=== PATIENT | female | born 1985 | race African-American/Black ===

== ENCOUNTER 2016-03-09 17:32 | Emergency (ER) | payer OTHER ==
[2016-03-09 19:19] LABS: BASO % 0.2 % (0.0-1.0); EOS # 0.1 K/mm3 (0.0-0.50); EOS % 1.7 % (0.0-3.0); LARGE UNSTAINED CELL # 0.1 K/mm3 (0.0-0.4); LARGE UNSTAINED CELL % 1.4 % (0.0-4.0); LYMPH # 2.2 K/mm3 (1.5-6.5); LYMPH % 33.4 % (24.0-44.0); MEAN CORPUSCULAR HEMOGLOBIN 31.5 pg (27.0-33.0); MEAN CORPUSCULAR VOLUME 92.7 fl (80.0-96.0); MONO # 0.3 K/mm3 (0.0-0.8); NEUTROPHILS # 3.9 K/mm3 (1.8-7.7); NEUTROPHILS % 59.4 % (36.0-66.0); PLATELET COUNT, AUTOMATED 228 k/mm3 (150-450); RED CELL DISTRIBUTION WIDTH 12.2 % (11.5-14.5); WHITE BLOOD COUNT 6.6 K/mm3 (4.0-10.0)
[2016-03-09 19:32] LABS: CONTROL LINE HCG INT CTR LINE PRESENT
[2016-03-09 19:36] LABS: ANION GAP 7 MEQ/L (8-16); BLOOD UREA NITROGEN 10 MG/DL (7-18); CALCIUM LEVEL 8.8 MG/DL (8.5-10.1); CARBON DIOXIDE LEVEL 28 MEQ/L (21-32); CHLORIDE LEVEL 105 MEQ/L (98-107); CREATININE FOR GFR 0.81 MG/DL (0.55-1.02); GLOMERULAR FILTRATION RATE > 60.0 (>60); GLUCOSE, FASTING 94 MG/DL (70-105); POTASSIUM SERUM 3.7 MEQ/L (3.5-5.1); SODIUM LEVEL 140 MEQ/L (136-145)
[2016-03-09] MEDS ORDERED: KETOROLAC 30 MG/ML VIAL (J1885) As Ordered ONE ×2 (19:43)
[2016-03-09] MEDS ORDERED: metroNIDAZOLE (FLAGYL) 250 MG TAB As Ordered ONE (19:43)
--- NOTE | 2016-03-09 20:30 | REPUSA ---
Clinical history: Pain. Findings: Real-time transabdominal and transvaginal ultrasound images of the pelvis were obtained. An retroverted uterus is noted, measuring 6.7 x 3.4 x 4.8 cm. The uterus demonstrates normal echotextur e and echogenicity. The endometrial stripe measures 2 mm and is within normal limits. The right ovary measures 3.8 x 1.7 x 1.9 cm. The left ovary measures 3.8 x 1.9 x 2.3 cm. No adnexal masses are seen. Color Doppler flow is seen within both ovaries. There is a small amount of physiologic free fluid no latricia in the cul-de-sac. Impression: Unremarkable ultrasound examination of the pelvis.
--- NOTE | 2016-03-09 21:12 | EDDOCDS ---
Nurse's Notes [facility] Name: Prema Morrissey Age: 30 yrs Sex: Female : 1985 Arrival Date: 03/09/2016 Time: 17:32 Bed I4 / M4 Private MD: HOPE Hunt Diagnosis: Acute vaginitis-BACTERIAL VAGINOSIS Presentation: 03/09 17:49 Presenting complaint: Patient states: Having severe suprapubic pain and and back pain jo3 bilaterally. Was given Pyridium at [facility] but they stated they did not find UTI. Had burning with urination prior to Pyridium. Acute neurological deficits are not present. Mechanism of Injury: No Mechanism of Injury. Adult Sepsis Screening: The patient does not have new or worsening altered mentation. Patient's respiratory rate is less than 22. Systolic blood pressure is greater than 100. Patient has a qSOFA score of 0- Negative Sepsis Screen. Suicide/Homicide risk assessment- the patient denies having any suicidal and/or homicidal ideations and does not present with any other emotional, behavioral or mental health complaints. Status: The patient is a dependent. Transition of care: patient was not received from another setting of care. 17:49 Acuity: YESENIA Level 3 jo3 17:49 Method Of Arrival: Walkin/Carried/Asstd jo3 Triage Assessment: 17:53 General: Appears in no apparent distress, Behavior is appropriate for age, cooperative. jo3 Pain: Pain currently is 8 out of 10 on a pain scale. HIV screening NA for this visit Offered previously. Neurological: Level of Consciousness is awake, alert, Oriented to person, place, time. Respiratory: Airway is patent Respiratory effort is even, unlabored. CATH LAB: 17:53 LMP 01/31/2016 jo3 17:53 Had serum HCG done 03/01/16 jo3 Historical: - Allergies: no known allergies; - Home Meds: 1. Claritin 10 mg Oral tab 1 tab once daily 2. Sertraline 25 mg twice a day 3. Maalox 200-200-20 mg/5 mL Oral susp as needed - PMHx: Depression; - PSHx: none; - Social history: Smoking status: Patient states was never smoker of tobacco. No barriers to communication noted, The patient speaks fluent Serbian, Speaks appropriately for age. - Family history: Not pertinent. - : The pt / caregiver states he / she is not on anticoagulants. Home medication list is obtained from the patient. - Exposure Risk Screening:: None identified. Screenin:55 Screening information is obtained from the patient. Fall risk: No risks identified. jo3 Assistance ADL's: requires no assistance with activities of daily living. Abuse/DV Screen: The patient / caregiver reports he/she is: not in a situation that causes fear, pain or injury. Nutritional screening: No deficits noted. Advance Directives: There is no living will. home support is adequate. Assessment: 19:55 General: Appears in no apparent distress, comfortable, Behavior is appropriate for age, jo3 cooperative, quiet. Pain: Pain currently is 8 out of 10 on a pain scale. Neurological: Level of Consciousness is awake, alert, obeys commands, Oriented to person, place, time. Respiratory: Airway is patent Respiratory effort is even, unlabored. Derm: Skin is pink, warm & dry. Musculoskeletal: Range of motion intact in all extremities. No deformity noted. 21:09 General: Appears in no apparent distress, Behavior is cooperative. Pain: Location: low ld5 back area Pain currently is 6 out of 10 on a pain scale. Respiratory: Airway is patent Respiratory effort is even, unlabored. GI: Denies nausea. Vital Signs: 17:34 BP 142 / 85; Pulse 73; Resp 18; Temp 99.3(O); Pulse Ox 100% on R/A; Weight 68.04 kg elp (R); Height 5 ft. 3 in. (160.02 cm) (R); Pain 8/10; 21:09 BP 130 / 71; Pulse 61; Resp 16; Temp 99; Pulse Ox 98% on R/A; Pain 6/10; ld5 17:34 Body Mass Index 26.57 (68.04 kg, 160.02 cm) cox [place] Vitals: 17:34 Log In Time: March 09, 2016 at 17:30. elp ED Course: 17:33 Patient visited by Mana Weston PCA. elp 17:33 Patient moved to Waiting elp 17:34 HOPE Hunt is Private Physician. elp 17:35 Patient visited by Mana Weston PCA. elp 17:35 Patient moved to Pre RCE elp 17:51 Triage Initiated jo3 17:55 Patient visited by Lanie Yoder,MIMI. jo3 18:11 Patient moved to Triage 2 kcs 18:26 Shon Thorpe PA is PHCP. mo1 18:26 Alec Lopez MD is Attending Physician. mo1 18:35 Patient visited by Maria Eugenia Augustin,MIMI. ck1 18:45 Patient visited by Shon Thorpe PA. mo1 18:45 Patient moved to I4 / M4 kcs 19:04 Basic Metabolic Profile Sent. ajs 19:05 CBC with Diff Sent. ajs 19:05 HCG,Serum Qualitative Sent. ajs 19:05 Urinalysis Sent. ajs 19:05 Urine Culture Sent. ajs 19:10 Assist provider with pelvic exam: Specimens sent to lab. ajs 19:39 Patient visited by Esther Parker RN. ms18 19:55 Patient visited by Lanie Yoder RN. jo3 19:55 The patient / caregiver is instructed regarding the plan of care and ED course. Patient michelle has correct armband on for positive identification. Placed in gown. Bed in low position. Property sent home with patient. :Personal belongings accompany Pt. 19:55 No IV's were initiated during this patient's visit. jo3 19:57 Patient visited by Rita Narvaez. ajs 19:57 [facility] Payment Agreement was scanned into [employer] and attached to record. zo 20:01 Patient name changed from Prema\S\\S\Ghanshyam\S\ to Prema\S\ \S\Ghanshyam. EDMS 20:49 Patient visited by Esther Parker RN. ms18 21:10 - Pelvic Non-Ob Complete Returned. EDMS 21:11 Patient visited by Kaylan Escobar RN. ld5 Administered Medications: 20:00 Drug: ketorolac 60 mg [ketorolac 30 mg/mL (1 mL) injection solution (2 mL)] Route: IM; ms18 Site: right deltoid; 21:10 Follow up: Response: Pain is decreased ld5 20:00 Drug: metroNIDAZOLE 500 mg [metronidazole 250 mg tablet (2 tabs)] Route: PO; ms18 Order Results: Lab Order: Basic Metabolic Profile; SPEC'M 03/09/16 19:03 Test: GLUCOSE, FASTING; Value: 94; Range: 70-105; Units: MG/DL; Status: F Test: BLOOD UREA NITROGEN; Value: 10; Range: 7-18; Units: MG/DL; Status: F Test: CREATININE FOR GFR; Value: 0.81; Range: 0.55-1.02; Units: MG/DL; Status: F Test: SODIUM LEVEL; Range: 136-145; Units: MEQ/L; Status: I Test: POTASSIUM SERUM; Range: 3.5-5.1; Units: MEQ/L; Status: I Test: CHLORIDE LEVEL; Range: 98-107; Units: MEQ/L; Status: I Test: CARBON DIOXIDE LEVEL; Range: 21-32; Units: MEQ/L; Status: I Test: ANION GAP; Range: 8-16; Units: MEQ/L; Status: I Test: CALCIUM LEVEL; Range: 8.5-10.1; Units: MG/DL; Status: I Test: GLOMERULAR FILTRATION RATE; Value: > 60.0; Range: >60; Status: F Test: SODIUM LEVEL; Value: 140; Range: 136-145; Units: MEQ/L; Status: F Test: POTASSIUM SERUM; Value: 3.7; Range: 3.5-5.1; Units: MEQ/L; Status: F Test: CHLORIDE LEVEL; Value: 105; Range: 98-107; Units: MEQ/L; Status: F Test: CARBON DIOXIDE LEVEL; Value: 28; Range: 21-32; Units: MEQ/L; Status: F Test: ANION GAP; Value: 7; Range: 8-16; Abnormal: Below low normal; Units: MEQ/L; Status: F Test: CALCIUM LEVEL; Value: 8.8; Range: 8.5-10.1; Units: MG/DL; Status: F Test Note: ; Units are mL/min/1.73 m2 Chronic Kidney Disease Staging per NKF: Stage I & II GFR >=60 Normal to Mildly Decreased Stage III GFR 30-59 Moderately Decreased Stage IV GFR 15-29 Severely Decreased Stage V GFR <15 Very Little GFR Left ESRD GFR <15 on [employer] Lab Order: CBC with Diff; SPEC'M 03/09/16 19:03 Test: WHITE BLOOD COUNT; Value: 6.6; Range: 4.0-10.0; Units: K/mm3; Status: F Test: RED BLOOD COUNT; Value: 4.22; Range: 4.00-5.40; Units: M/mm3; Status: F Test: HEMOGLOBIN; Value: 13.3; Range: 12.0-16.0; Units: g/dl; Status: F Test: HEMATOCRIT; Value: 39.1; Range: 36.0-47.0; Units: %; Status: F Test: MEAN CORPUSCULAR VOLUME; Value: 92.7; Range: 80.0-96.0; Units: fl; Status: F Test: MEAN CORPUSCULAR HEMOGLOBIN; Value: 31.5; Range: 27.0-33.0; Units: pg; Status: F Test: MEAN CORPUSCULAR HGB CONC; Value: 34.0; Range: 32.0-36.5; Units: g/dl; Status: F Test: RED CELL DISTRIBUTION WIDTH; Value: 12.2; Range: 11.5-14.5; Units: %; Status: F Test: PLATELET COUNT, AUTOMATED; Value: 228; Range: 150-450; Units: k/mm3; Status: F Test: NEUTROPHILS %; Value: 59.4; Range: 36.0-66.0; Units: %; Status: F Test: LYMPH %; Value: 33.4; Range: 24.0-44.0; Units: %; Status: F Test: MONO %; Value: 4.0; Range: 0.0-5.0; Units: %; Status: F Test: EOS %; Value: 1.7; Range: 0.0-3.0; Units: %; Status: F Test: BASO %; Value: 0.2; Range: 0.0-1.0; Units: %; Status: F Test: LARGE UNSTAINED CELL %; Value: 1.4; Range: 0.0-4.0; Units: %; Status: F Test: NEUTROPHILS #; Value: 3.9; Range: 1.8-7.7; Units: K/mm3; Status: F Test: LYMPH #; Value: 2.2; Range: 1.5-6.5; Units: K/mm3; Status: F Test: MONO #; Value: 0.3; Range: 0.0-0.8; Units: K/mm3; Status: F Test: EOS #; Value: 0.1; Range: 0.0-0.50; Units: K/mm3; Status: F Test: BASO #; Value: 0.0; Range: 0.0-0.2; Units: K/mm3; Status: F Test: LARGE UNSTAINED CELL #; Value: 0.1; Range: 0.0-0.4; Units: K/mm3; Status: F Lab Order: HCG,Serum Qualitative; SPEC'M 03/09/16 19:03 Test: HCG, SERUM QUALITATIVE; Value: NEGATIVE; Range: NEGATIVE; Status: F Lab Order: Urinalysis; SPEC'M 03/09/16 19:03 Test: APPEARANCE, URINE; Value: CLEAR; Range: CLEAR; Status: F Test: COLOR, URINE; Value: YELLOW; Range: YELLOW; Status: F Test: PH,URINE; Value: 7.0; Range: 5.0-9.0; Units: UNITS; Status: F Test: SPECIFIC GRAVITY URINE AUTO; Value: 1.018; Range: 1.002-1.035; Status: F Test: PROTEIN, URINE AUTO; Value: NEGATIVE; Range: NEGATIVE; Units: mg/dL; Status: F Test: GLUCOSE, URINE (UA) AUTO; Value: NEGATIVE; Range: NEGATIVE; Units: mg/dL; Status: F Test: KETONE, URINE AUTO; Value: NEGATIVE; Range: NEGATIVE; Units: mg/dL; Status: F Test: UROBILINOGEN, URINE AUTO; Value: 4.0; Range: 0.0-2.0; Abnormal: Above high normal; Units: mg/dL; Status: F Test: BILIRUBIN, URINE AUTO; Value: NEGATIVE; Range: NEGATIVE; Status: F Test: NITRITE, URINE AUTO; Value: NEGATIVE; Range: NEGATIVE; Status: F Test: LEUKOCYTE ESTERASE, URINE AUTO; Value: NEGATIVE; Range: NEGATIVE; Status: F Test: BLOOD, URINE BLOOD; Value: NEGATIVE; Range: NEGATIVE; Status: F Test: WBC, URINE AUTO; Value: 2; Range: 0-3; Units: /HPF; Status: F Test: RBC, URINE AUTO; Value: 0; Range: 0-3; Units: /HPF; Status: F Test: BACTERIA, URINE AUTO; Value: NEGATIVE; Range: NEGATIVE; Status: F Test: SQUAMOUS EPITHELIAL CELL UR AU; Value: 3; Range: 0-6; Units: /HPF; Status: F Test: MUCUS, URINE; Value: SMALL; Range: NEGATIVE; Status: F Test: HYALINE CAST, URINE AUTO; Value: 0; Range: 0-1; Units: /LPF; Status: F Lab Order: Wet Prep; SPEC'M 03/09/16 19:04 Test: WET PREP; Value: WET PREP RESULT; Status: F Test: WET PREP; Value: MANY EPITHELIAL CELLS PRESENT; Status: F Test: WET PREP; Value: MODERATE WBC; Status: F Test: WET PREP; Value: MODERATE CLUE CELLS PRESENT; Status: F Test: WET PREP; Value: MANY SHORT RODS PRESENT; Status: F Test: WET PREP; Value: MANY LONG RODS PRESENT; Status: F Radiology Order: -US Pelvic Non-Ob Complete Test: -US Pelvic Non-Ob Complete REASON FOR EXAMINATION: Adnexal Pain r/o Torsion; ; Clinical history: Pain.; Findings: Real-time transabdominal and transvaginal ultrasound images of the pelvis were obtained. An; retroverted uterus is noted, measuring 6.7 x 3.4 x 4.8 cm. The uterus demonstrates normal echotextur; e and echogenicity. The endometrial stripe measures 2 mm and is within normal limits. The right ovary; measures 3.8 x 1.7 x 1.9 cm. The left ovary measures 3.8 x 1.9 x 2.3 cm. No adnexal masses are seen.; Color Doppler flow is seen within both ovaries. There is a small amount of physiologic free fluid no; latricia in the cul-de-sac.; Impression: Unremarkable ultrasound examination of the pelvis.; ; Outcome: 20:58 Discharge ordered by Provider. mo1 21:09 Discharge Assessment: Patient awake, alert and oriented x 3. No cognitive and/or ld5 functional deficits noted. Patient verbalized understanding of disposition instructions. patient administered narcotics - no. The following High Risk Discharge criteria are identified: None. Discharged to home ambulatory. Condition: stable. Discharge instructions given to patient, Instructed on discharge instructions, follow up and referral plans. medication usage, Demonstrated understanding of instructions, medications, Pt was receptive of discharge instructions/ teaching. Prescriptions given X 1. No special radiology studies were completed. 21:11 Patient left the ED. ld5 Signatures: Dispatcher [employer] EDConstance Vazquez, RN RN Maria Eugenia TomRN RN ck1 Lanie Yoder RN RN jo3 Destinee Caceres Laura, RN RN ld5 Rita Narvaez Michael, PA PA mo1 Mana Weston, MOLD STAMPER MOLD STAMPER elp Esther Parker RN RN ms18 Corrections: (The following items were deleted from the chart) 17:35 17:34 BP 142 / 85; Pulse 73bpm; Resp 18bpm; Pulse Ox 100%; Temp 99.3F; 68.04 kg; Height elp 5 ft. 5 in.; BMI: 24.9; elp 19:57 19:56 Assist provider with pelvic exam: krystina flaherty MTDD
--- NOTE | 2016-03-09 21:12 | EDDOCDS ---
Physician Documentation [facility] Name: Prema Morrissey Age: 30 yrs Sex: Female : 1985 Arrival Date: 03/09/2016 Time: 17:32 Bed I4 / M4 Private MD: Marilee [facility] Disposition: 03/09/16 20:58 Discharged to Home/Self Care. Impression: Acute vaginitis - BACTERIAL VAGINOSIS . - Condition is Stable. - Discharge Instructions: Bacterial Vaginosis, Pelvic Pain, Female. - Prescriptions for Flagyl 500 mg Oral Tablet - take 1 tablet by ORAL route every 12 hours for 7 days; 14 tablet. - Medication Reconciliation, Local Pharmacy Hours form. - Follow up: Private Physician; When: Call to arrange an appointment; Reason: Recheck today's complaints, Continuance of care. - Problem is new. - Symptoms are unchanged. Historical: - Allergies: no known allergies; - Home Meds: 1. Claritin 10 mg Oral tab 1 tab once daily 2. Sertraline 25 mg twice a day 3. Maalox 200-200-20 mg/5 mL Oral susp as needed - PMHx: Depression; - PSHx: none; - Social history: Smoking status: Patient states was never smoker of tobacco. No barriers to communication noted, The patient speaks fluent Moldovan, Speaks appropriately for age. - Family history: Not pertinent. - : The pt / caregiver states he / she is not on anticoagulants. Home medication list is obtained from the patient. - Exposure Risk Screening:: None identified. 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 3 in. (160.02 cm) (R); Pain 8/10; 21:09 BP 130 / 71; Pulse 61; Resp 16; Temp 99; Pulse Ox 98% on R/A; Pain 6/10; ld5 17:34 Body Mass Index 26.57 (68.04 kg, 160.02 cm) elp MDM: 18:46 Undress patient appropriately for examination ordered. mo1 18:46 Set up pelvic ordered. mo1 18:46 ketorolac 60 mg IM once ordered. mo1 18:47 Basic Metabolic Profile Ordered. EDMS 18:47 CBC with Diff Ordered. EDMS 18:47 HCG,Serum Qualitative Ordered. EDMS 18:47 Urinalysis Ordered. EDMS 18:47 GC & Chlamydia Amplification Ordered. EDMS 18:48 Urine Culture Ordered. EDMS 18:48 Wet Prep Ordered. EDMS 18:49 NOTHING BY MOUTH+DIET ordered. EDMS 19:10 -US Pelvic Non-Ob Complete Ordered. EDMS 19:10 DUPLEX SCAN LIMITED (DOPPLER)+US Ordered. EDMS 19:23 CBC with Diff Reviewed. mo1 19:42 HCG,Serum Qualitative Reviewed. mo1 19:42 Wet Prep Reviewed. mo1 19:42 Urinalysis Reviewed. mo1 19:42 Basic Metabolic Profile Reviewed. mo1 19:43 metroNIDAZOLE 500 mg PO once ordered. mo1 19:56 Financial registration complete. zo 19:57 [facility] Payment Agreement was scanned into [employer] and attached to record. zo Administered Medications: 20:00 Drug: ketorolac 60 mg [ketorolac 30 mg/mL (1 mL) injection solution (2 mL)] Route: IM; ms18 Site: right deltoid; 21:10 Follow up: Response: Pain is decreased ld5 20:00 Drug: metroNIDAZOLE 500 mg [metronidazole 250 mg tablet (2 tabs)] Route: PO; ms18 Signatures: Dispatcher [employer] Lanie Jones RN RN jo3 Destinee Caceres Laura, RN RN ld5 Shon Thorpe PA PA mo1 Esther Parker RN ms18 The chart was reviewed and I authenticate all verbal orders and agree with the evaluation and treatment provided.Attachments: 19:57 [facility] Payment Agreement zo MTDD
--- NOTE | 2016-03-11 22:12 | EDDOCDS ---
Physician Documentation [facility] Name: Prema Morrissey Age: 30 yrs Sex: Female : 1985 Arrival Date: 03/09/2016 Time: 17:32 Bed I4 / M4 Private MD: Marilee [facility] [place] Disposition: 03/09/16 20:58 Discharged to Home/Self Care. Impression: Acute vaginitis - BACTERIAL VAGINOSIS . - Condition is Stable. - Discharge Instructions: Bacterial Vaginosis, Pelvic Pain, Female. - Prescriptions for Flagyl 500 mg Oral Tablet - take 1 tablet by ORAL route every 12 hours for 7 days; 14 tablet. - Medication Reconciliation, Local Pharmacy Hours form. - Follow up: Private Physician; When: Call to arrange an appointment; Reason: Recheck today's complaints, Continuance of care. - Problem is new. - Symptoms are unchanged. Historical: - Allergies: no known allergies; - Home Meds: 1. Claritin 10 mg Oral tab 1 tab once daily 2. Sertraline 25 mg twice a day 3. Maalox 200-200-20 mg/5 mL Oral susp as needed - PMHx: Depression; - PSHx: none; - Social history: Smoking status: Patient states was never smoker of tobacco. No barriers to communication noted, The patient speaks fluent Egyptian, Speaks appropriately for age. - Family history: Not pertinent. - : The pt / caregiver states he / she is not on anticoagulants. Home medication list is obtained from the patient. - Exposure Risk Screening:: None identified. 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 3 in. (160.02 cm) (R); Pain 8/10; 21:09 BP 130 / 71; Pulse 61; Resp 16; Temp 99; Pulse Ox 98% on R/A; Pain 6/10; ld5 17:34 Body Mass Index 26.57 (68.04 kg, 160.02 cm) elp MDM: 18:46 Undress patient appropriately for examination ordered. mo1 18:46 Set up pelvic ordered. mo1 18:46 ketorolac 60 mg IM once ordered. mo1 18:47 Basic Metabolic Profile Ordered. EDMS 18:47 CBC with Diff Ordered. EDMS 18:47 HCG,Serum Qualitative Ordered. EDMS 18:47 Urinalysis Ordered. EDMS 18:47 GC & Chlamydia Amplification Ordered. EDMS 18:48 Urine Culture Ordered. EDMS 18:48 Wet Prep Ordered. EDMS 18:49 NOTHING BY MOUTH+DIET ordered. EDMS 19:10 -US Pelvic Non-Ob Complete Ordered. EDMS 19:10 DUPLEX SCAN LIMITED (DOPPLER)+US Ordered. EDMS 19:23 CBC with Diff Reviewed. mo1 19:42 HCG,Serum Qualitative Reviewed. mo1 19:42 Wet Prep Reviewed. mo1 19:42 Urinalysis Reviewed. mo1 19:42 Basic Metabolic Profile Reviewed. mo1 19:43 metroNIDAZOLE 500 mg PO once ordered. mo1 19:56 Financial registration complete. zo :57 [facility] Payment Agreement was scanned into [facility] and attached to record. zo 03/10 10:58 T-Sheet-- Draft Copy was scanned into [facility] and attached to record. gb Administered Medications: 03/09 20:00 Drug: ketorolac 60 mg [ketorolac 30 mg/mL (1 mL) injection solution (2 mL)] Route: IM; ms18 Site: right deltoid; 21:10 Follow up: Response: Pain is decreased ld5 20:00 Drug: metroNIDAZOLE 500 mg [metronidazole 250 mg tablet (2 tabs)] Route: PO; ms18 Signatures: Dispatcher [employer] EDSD Prema Moe, Reg Reg Lanie CastroRN RN [email or web address] Destinee Caceres Laura, RN RN ld5 Shon Thorpe PA PA mo1 Esther Parker RN ms18 The chart was reviewed and I authenticate all verbal orders and agree with the evaluation and treatment provided.Attachments: :57 [facility] Payment Agreement zo 03/10 10:58 T-Sheet-- Draft Copy gb Chart Complete MTDD
--- NOTE | 2016-03-11 22:12 | EDDOCDS ---
Physician Documentation [facility] Name: Prema Morrissey Age: 30 yrs Sex: Female : 1985 Arrival Date: 03/09/2016 Time: 17:32 Bed I4 / M4 Private MD: Marilee [facility] [place] Disposition: 03/09/16 20:58 Discharged to Home/Self Care. Impression: Acute vaginitis - BACTERIAL VAGINOSIS . - Condition is Stable. - Discharge Instructions: Bacterial Vaginosis, Pelvic Pain, Female. - Prescriptions for Flagyl 500 mg Oral Tablet - take 1 tablet by ORAL route every 12 hours for 7 days; 14 tablet. - Medication Reconciliation, Local Pharmacy Hours form. - Follow up: Private Physician; When: Call to arrange an appointment; Reason: Recheck today's complaints, Continuance of care. - Problem is new. - Symptoms are unchanged. Historical: - Allergies: no known allergies; - Home Meds: 1. Claritin 10 mg Oral tab 1 tab once daily 2. Sertraline 25 mg twice a day 3. Maalox 200-200-20 mg/5 mL Oral susp as needed - PMHx: Depression; - PSHx: none; - Social history: Smoking status: Patient states was never smoker of tobacco. No barriers to communication noted, The patient speaks fluent Scottish, Speaks appropriately for age. - Family history: Not pertinent. - : The pt / caregiver states he / she is not on anticoagulants. Home medication list is obtained from the patient. - Exposure Risk Screening:: None identified. 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 3 in. (160.02 cm) (R); Pain 8/10; 21:09 BP 130 / 71; Pulse 61; Resp 16; Temp 99; Pulse Ox 98% on R/A; Pain 6/10; ld5 17:34 Body Mass Index 26.57 (68.04 kg, 160.02 cm) elp MDM: 18:46 Undress patient appropriately for examination ordered. mo1 18:46 Set up pelvic ordered. mo1 18:46 ketorolac 60 mg IM once ordered. mo1 18:47 Basic Metabolic Profile Ordered. EDMS 18:47 CBC with Diff Ordered. EDMS 18:47 HCG,Serum Qualitative Ordered. EDMS 18:47 Urinalysis Ordered. EDMS 18:47 GC & Chlamydia Amplification Ordered. EDMS 18:48 Urine Culture Ordered. EDMS 18:48 Wet Prep Ordered. EDMS 18:49 NOTHING BY MOUTH+DIET ordered. EDMS 19:10 -US Pelvic Non-Ob Complete Ordered. EDMS 19:10 DUPLEX SCAN LIMITED (DOPPLER)+US Ordered. EDMS 19:23 CBC with Diff Reviewed. mo1 19:42 HCG,Serum Qualitative Reviewed. mo1 19:42 Wet Prep Reviewed. mo1 19:42 Urinalysis Reviewed. mo1 19:42 Basic Metabolic Profile Reviewed. mo1 19:43 metroNIDAZOLE 500 mg PO once ordered. mo1 19:56 Financial registration complete. zo :57 [facility] Payment Agreement was scanned into [employer] and attached to record. zo 03/10 10:58 T-Sheet-- Draft Copy was scanned into [employer] and attached to record. gb Administered Medications: 03/09 20:00 Drug: ketorolac 60 mg [ketorolac 30 mg/mL (1 mL) injection solution (2 mL)] Route: IM; ms18 Site: right deltoid; 21:10 Follow up: Response: Pain is decreased ld5 20:00 Drug: metroNIDAZOLE 500 mg [metronidazole 250 mg tablet (2 tabs)] Route: PO; ms18 Signatures: Dispatcher [employer] EDIL Prema Moe, Reg Reg Lanie CastroRN RN [id number] Destinee Caceres Laura, RN RN ld5 Shon Thorpe PA PA mo1 Esther Parker RN ms18 The chart was reviewed and I authenticate all verbal orders and agree with the evaluation and treatment provided.Attachments: :57 [facility] Payment Agreement zo 03/10 10:58 T-Sheet-- Draft Copy gb Chart Complete MTDD
--- NOTE | 2016-03-11 22:12 | EDDOCDS ---
Nurse's Notes [facility] Name: Prema Morrissey Age: 30 yrs Sex: Female : 1985 Arrival Date: 03/09/2016 Time: 17:32 Bed I4 / M4 Private MD: HOPE Hunt Diagnosis: Acute vaginitis-BACTERIAL VAGINOSIS Presentation: 03/09 17:49 Presenting complaint: Patient states: Having severe suprapubic pain and and back pain jo3 bilaterally. Was given Pyridium at [place] but they stated they did not find UTI. Had burning with urination prior to Pyridium. Acute neurological deficits are not present. Mechanism of Injury: No Mechanism of Injury. Adult Sepsis Screening: The patient does not have new or worsening altered mentation. Patient's respiratory rate is less than 22. Systolic blood pressure is greater than 100. Patient has a qSOFA score of 0- Negative Sepsis Screen. Suicide/Homicide risk assessment- the patient denies having any suicidal and/or homicidal ideations and does not present with any other emotional, behavioral or mental health complaints. Status: The patient is a dependent. Transition of care: patient was not received from another setting of care. 17:49 Acuity: YESENIA Level 3 jo3 17:49 Method Of Arrival: Walkin/Carried/Asstd jo3 Triage Assessment: 17:53 General: Appears in no apparent distress, Behavior is appropriate for age, cooperative. jo3 Pain: Pain currently is 8 out of 10 on a pain scale. HIV screening NA for this visit Offered previously. Neurological: Level of Consciousness is awake, alert, Oriented to person, place, time. Respiratory: Airway is patent Respiratory effort is even, unlabored. QUARTZ MINER BLASTING: 17:53 LMP 01/31/2016 jo3 17:53 Had serum HCG done 03/01/16 jo3 Historical: - Allergies: no known allergies; - Home Meds: 1. Claritin 10 mg Oral tab 1 tab once daily 2. Sertraline 25 mg twice a day 3. Maalox 200-200-20 mg/5 mL Oral susp as needed - PMHx: Depression; - PSHx: none; - Social history: Smoking status: Patient states was never smoker of tobacco. No barriers to communication noted, The patient speaks fluent Divehi, Speaks appropriately for age. - Family history: Not pertinent. - : The pt / caregiver states he / she is not on anticoagulants. Home medication list is obtained from the patient. - Exposure Risk Screening:: None identified. Screenin:55 Screening information is obtained from the patient. Fall risk: No risks identified. jo3 Assistance ADL's: requires no assistance with activities of daily living. Abuse/DV Screen: The patient / caregiver reports he/she is: not in a situation that causes fear, pain or injury. Nutritional screening: No deficits noted. Advance Directives: There is no living will. home support is adequate. Assessment: 19:55 General: Appears in no apparent distress, comfortable, Behavior is appropriate for age, jo3 cooperative, quiet. Pain: Pain currently is 8 out of 10 on a pain scale. Neurological: Level of Consciousness is awake, alert, obeys commands, Oriented to person, place, time. Respiratory: Airway is patent Respiratory effort is even, unlabored. Derm: Skin is pink, warm & dry. Musculoskeletal: Range of motion intact in all extremities. No deformity noted. 21:09 General: Appears in no apparent distress, Behavior is cooperative. Pain: Location: low ld5 back area Pain currently is 6 out of 10 on a pain scale. Respiratory: Airway is patent Respiratory effort is even, unlabored. GI: Denies nausea. Vital Signs: 17:34 BP 142 / 85; Pulse 73; Resp 18; Temp 99.3(O); Pulse Ox 100% on R/A; Weight 68.04 kg elp (R); Height 5 ft. 3 in. (160.02 cm) (R); Pain 8/10; 21:09 BP 130 / 71; Pulse 61; Resp 16; Temp 99; Pulse Ox 98% on R/A; Pain 6/10; ld5 17:34 Body Mass Index 26.57 (68.04 kg, 160.02 cm) [facility] Vitals: 17:34 Log In Time: March 09, 2016 at 17:30. elp ED Course: 17:33 Patient visited by Mana Weston PCA. elp 17:33 Patient moved to Waiting elp 17:34 HOPE Hunt is Private Physician. elp 17:35 Patient visited by Mana Weston PCA. elp 17:35 Patient moved to Pre RCE elp 17:51 Triage Initiated jo3 17:55 Patient visited by Lanie Yoder RN. jo3 18:11 Patient moved to Triage 2 kcs 18:26 Shon Thorpe PA is PHCP. mo1 18:26 Alec Lopez MD is Attending Physician. mo1 18:35 Patient visited by Maria Eugenia Augustin,MIMI. ck1 18:45 Patient visited by Shon Thorpe PA. mo1 18:45 Patient moved to I4 / M4 kcs 19:04 Basic Metabolic Profile Sent. ajs 19:05 CBC with Diff Sent. ajs 19:05 HCG,Serum Qualitative Sent. ajs 19:05 Urinalysis Sent. ajs 19:05 Urine Culture Sent. ajs 19:10 Assist provider with pelvic exam: Specimens sent to lab. ajs 19:39 Patient visited by Esther Parker RN. ms18 19:55 Patient visited by Lanie Yoder RN. jo3 19:55 The patient / caregiver is instructed regarding the plan of care and ED course. Patient michelle has correct armband on for positive identification. Placed in gown. Bed in low position. Property sent home with patient. :Personal belongings accompany Pt. 19:55 No IV's were initiated during this patient's visit. jo3 19:57 Patient visited by Rita Narvaez. ajs 19:57 [facility] Payment Agreement was scanned into [employer] and attached to record. zo 20:01 Patient name changed from Prema\S\\S\Ghanshyam\S\ to Prema\S\ \S\Ghanshyam. EDMS 20:49 Patient visited by Esther Parker RN. ms18 21:10 -US Pelvic Non-Ob Complete Returned. EDMS 21:11 Patient visited by Kaylan Escobar RN. ld5 0203 10:58 T-Sheet-- Draft Copy was scanned into [employer] and attached to record. gb Administered Medications: 03/09 20:00 Drug: ketorolac 60 mg [ketorolac 30 mg/mL (1 mL) injection solution (2 mL)] Route: IM; ms18 Site: right deltoid; 21:10 Follow up: Response: Pain is decreased ld5 20:00 Drug: metroNIDAZOLE 500 mg [metronidazole 250 mg tablet (2 tabs)] Route: PO; ms18 Order Results: Lab Order: Basic Metabolic Profile; SPEC'M 03/09/16 19:03 Test: GLUCOSE, FASTING; Value: 94; Range: 70-105; Units: MG/DL; Status: F Test: BLOOD UREA NITROGEN; Value: 10; Range: 7-18; Units: MG/DL; Status: F Test: CREATININE FOR GFR; Value: 0.81; Range: 0.55-1.02; Units: MG/DL; Status: F Test: SODIUM LEVEL; Range: 136-145; Units: MEQ/L; Status: I Test: POTASSIUM SERUM; Range: 3.5-5.1; Units: MEQ/L; Status: I Test: CHLORIDE LEVEL; Range: 98-107; Units: MEQ/L; Status: I Test: CARBON DIOXIDE LEVEL; Range: 21-32; Units: MEQ/L; Status: I Test: ANION GAP; Range: 8-16; Units: MEQ/L; Status: I Test: CALCIUM LEVEL; Range: 8.5-10.1; Units: MG/DL; Status: I Test: GLOMERULAR FILTRATION RATE; Value: > 60.0; Range: >60; Status: F Test: SODIUM LEVEL; Value: 140; Range: 136-145; Units: MEQ/L; Status: F Test: POTASSIUM SERUM; Value: 3.7; Range: 3.5-5.1; Units: MEQ/L; Status: F Test: CHLORIDE LEVEL; Value: 105; Range: 98-107; Units: MEQ/L; Status: F Test: CARBON DIOXIDE LEVEL; Value: 28; Range: 21-32; Units: MEQ/L; Status: F Test: ANION GAP; Value: 7; Range: 8-16; Abnormal: Below low normal; Units: MEQ/L; Status: F Test: CALCIUM LEVEL; Value: 8.8; Range: 8.5-10.1; Units: MG/DL; Status: F Test Note: ; Units are mL/min/1.73 m2 Chronic Kidney Disease Staging per NKF: Stage I & II GFR >=60 Normal to Mildly Decreased Stage III GFR 30-59 Moderately Decreased Stage IV GFR 15-29 Severely Decreased Stage V GFR <15 Very Little GFR Left ESRD GFR <15 on FISHER LAMPARA NET Lab Order: CBC with Diff; SPEC'M 03/09/16 19:03 Test: WHITE BLOOD COUNT; Value: 6.6; Range: 4.0-10.0; Units: K/mm3; Status: F Test: RED BLOOD COUNT; Value: 4.22; Range: 4.00-5.40; Units: M/mm3; Status: F Test: HEMOGLOBIN; Value: 13.3; Range: 12.0-16.0; Units: g/dl; Status: F Test: HEMATOCRIT; Value: 39.1; Range: 36.0-47.0; Units: %; Status: F Test: MEAN CORPUSCULAR VOLUME; Value: 92.7; Range: 80.0-96.0; Units: fl; Status: F Test: MEAN CORPUSCULAR HEMOGLOBIN; Value: 31.5; Range: 27.0-33.0; Units: pg; Status: F Test: MEAN CORPUSCULAR HGB CONC; Value: 34.0; Range: 32.0-36.5; Units: g/dl; Status: F Test: RED CELL DISTRIBUTION WIDTH; Value: 12.2; Range: 11.5-14.5; Units: %; Status: F Test: PLATELET COUNT, AUTOMATED; Value: 228; Range: 150-450; Units: k/mm3; Status: F Test: NEUTROPHILS %; Value: 59.4; Range: 36.0-66.0; Units: %; Status: F Test: LYMPH %; Value: 33.4; Range: 24.0-44.0; Units: %; Status: F Test: MONO %; Value: 4.0; Range: 0.0-5.0; Units: %; Status: F Test: EOS %; Value: 1.7; Range: 0.0-3.0; Units: %; Status: F Test: BASO %; Value: 0.2; Range: 0.0-1.0; Units: %; Status: F Test: LARGE UNSTAINED CELL %; Value: 1.4; Range: 0.0-4.0; Units: %; Status: F Test: NEUTROPHILS #; Value: 3.9; Range: 1.8-7.7; Units: K/mm3; Status: F Test: LYMPH #; Value: 2.2; Range: 1.5-6.5; Units: K/mm3; Status: F Test: MONO #; Value: 0.3; Range: 0.0-0.8; Units: K/mm3; Status: F Test: EOS #; Value: 0.1; Range: 0.0-0.50; Units: K/mm3; Status: F Test: BASO #; Value: 0.0; Range: 0.0-0.2; Units: K/mm3; Status: F Test: LARGE UNSTAINED CELL #; Value: 0.1; Range: 0.0-0.4; Units: K/mm3; Status: F Lab Order: HCG,Serum Qualitative; SPEC'M 03/09/16 19:03 Test: HCG, SERUM QUALITATIVE; Value: NEGATIVE; Range: NEGATIVE; Status: F Lab Order: Urinalysis; SPEC'M 03/09/16 19:03 Test: APPEARANCE, URINE; Value: CLEAR; Range: CLEAR; Status: F Test: COLOR, URINE; Value: YELLOW; Range: YELLOW; Status: F Test: PH,URINE; Value: 7.0; Range: 5.0-9.0; Units: UNITS; Status: F Test: SPECIFIC GRAVITY URINE AUTO; Value: 1.018; Range: 1.002-1.035; Status: F Test: PROTEIN, URINE AUTO; Value: NEGATIVE; Range: NEGATIVE; Units: mg/dL; Status: F Test: GLUCOSE, URINE (UA) AUTO; Value: NEGATIVE; Range: NEGATIVE; Units: mg/dL; Status: F Test: KETONE, URINE AUTO; Value: NEGATIVE; Range: NEGATIVE; Units: mg/dL; Status: F Test: UROBILINOGEN, URINE AUTO; Value: 4.0; Range: 0.0-2.0; Abnormal: Above high normal; Units: mg/dL; Status: F Test: BILIRUBIN, URINE AUTO; Value: NEGATIVE; Range: NEGATIVE; Status: F Test: NITRITE, URINE AUTO; Value: NEGATIVE; Range: NEGATIVE; Status: F Test: LEUKOCYTE ESTERASE, URINE AUTO; Value: NEGATIVE; Range: NEGATIVE; Status: F Test: BLOOD, URINE BLOOD; Value: NEGATIVE; Range: NEGATIVE; Status: F Test: WBC, URINE AUTO; Value: 2; Range: 0-3; Units: /HPF; Status: F Test: RBC, URINE AUTO; Value: 0; Range: 0-3; Units: /HPF; Status: F Test: BACTERIA, URINE AUTO; Value: NEGATIVE; Range: NEGATIVE; Status: F Test: SQUAMOUS EPITHELIAL CELL UR AU; Value: 3; Range: 0-6; Units: /HPF; Status: F Test: MUCUS, URINE; Value: SMALL; Range: NEGATIVE; Status: F Test: HYALINE CAST, URINE AUTO; Value: 0; Range: 0-1; Units: /LPF; Status: F Lab Order: Urine Culture; SPEC'M 03/09/16 19:03 Test: URINE CULTURE; Value: <EXTERNAL COMMENT eCWMed> FULL REPORT IN LAB NOTES (eCW and Medent).; Status: F Test: URINE CULTURE; Value: URINE CULTURE RESULT NO GROWTH CLINICAL SIGNIFICANCE 1 ORGANISM; Status: F Lab Order: GC & Chlamydia Amplification; SPEC'M 03/09/16 19:04 Test: CHLAMYDIA DNA AMPLIFICATION; Value: NEGATIVE; Range: NEGATIVE; Status: F Test: GC DNA AMPLIFICATION; Value: NEGATIVE; Range: NEGATIVE; Status: F Lab Order: Wet Prep; SPEC'M 03/09/16 19:04 Test: WET PREP; Value: WET PREP RESULT; Status: F Test: WET PREP; Value: MANY EPITHELIAL CELLS PRESENT; Status: F Test: WET PREP; Value: MODERATE WBC; Status: F Test: WET PREP; Value: MODERATE CLUE CELLS PRESENT; Status: F Test: WET PREP; Value: MANY SHORT RODS PRESENT; Status: F Test: WET PREP; Value: MANY LONG RODS PRESENT; Status: F Radiology Order: -US Pelvic Non-Ob Complete Test: -US Pelvic Non-Ob Complete REASON FOR EXAMINATION: Adnexal Pain r/o Torsion; ; Clinical history: Pain.; Findings: Real-time transabdominal and transvaginal ultrasound images of the pelvis were obtained. An; retroverted uterus is noted, measuring 6.7 x 3.4 x 4.8 cm. The uterus demonstrates normal echotextur; e and echogenicity. The endometrial stripe measures 2 mm and is within normal limits. The right ovary; measures 3.8 x 1.7 x 1.9 cm. The left ovary measures 3.8 x 1.9 x 2.3 cm. No adnexal masses are seen.; Color Doppler flow is seen within both ovaries. There is a small amount of physiologic free fluid no; latricia in the cul-de-sac.; Impression: Unremarkable ultrasound examination of the pelvis.; ; Outcome: 20:58 Discharge ordered by Provider. mo1 21:09 Discharge Assessment: Patient awake, alert and oriented x 3. No cognitive and/or ld5 functional deficits noted. Patient verbalized understanding of disposition instructions. patient administered narcotics - no. The following High Risk Discharge criteria are identified: None. Discharged to home ambulatory. Condition: stable. Discharge instructions given to patient, Instructed on discharge instructions, follow up and referral plans. medication usage, Demonstrated understanding of instructions, medications, Pt was receptive of discharge instructions/ teaching. Prescriptions given X 1. 21:11 Patient left the ED. ld5 21:12 Ultrasound Study completed. ld5 Signatures: Dispatcher [employer] EDMS Constance Mcintyre, RN RN [facility] Prema Moe, Reg Reg Maria Eugenia PetersonRN RN ck1 Lanie YoderRN RN jo3 Destinee Caceres Laura, RN RN ld5 Rita Narvaez Michael, PA PA mo1 Mana Weston, YARN WASHER YARN WASHER vitalyp Esther Parker,RN RN ms18 Corrections: (The following items were deleted from the chart) 17:35 17:34 BP 142 / 85; Pulse 73bpm; Resp 18bpm; Pulse Ox 100%; Temp 99.3F; 68.04 kg; Height elp 5 ft. 5 in.; BMI: 24.9; elp 19:57 19:56 Assist provider with pelvic exam: krystina flaherty 21:12 21:09 No special radiology studies were completed ld5 ld5 Chart Complete MTDD
== END 2016-03-09 21:11 | disposition home or self-care (01) ==
LOC: M ED 17:32
DX: N76.0 Acute vaginitis (principal); F32.9 Major depressive disorder, single episode, unspecified; Z79.899 Other long term (current) drug therapy
CPT/HCPCS: 36415; 76856; 80048; 81001; 84703; 85025; 87086; 87210; 87491; 87591; 93976; 96372; 99284; J1885

== ENCOUNTER 2017-09-27 21:34 | Emergency (ER) | payer OTHER ==
[2017-09-28] MEDS: AUGMENTIN 875 MG TAB PO (00:29)
[2017-09-28] MEDS: ONDANSETRON 4 MG ORAL DISINTEGRATING TAB (Q0162 PER 1MG) PO (00:29)
[2017-09-28] MEDS: MECLIZINE 25 MG TABLET PO (00:29)
== END 2017-09-28 01:16 | disposition home or self-care (01) ==
LOC: M ED 21:34
DX: H81.10 Benign paroxysmal vertigo, unspecified ear (principal); J01.90 Acute sinusitis, unspecified
CPT/HCPCS: Q0162

== ENCOUNTER → 2018-01-22 | Outpatient (REF) | payer OTHER ==
[~2018-01-22] MED LIST: AUGM875T28 PO; FLUTISP; LORA-243; MECL-68 PO; MONT10TA2; ZOFR4TAB14 PO; [UNRECOGNIZED DRUG - CODE]
[2018-01-22 13:23] LABS: BACTERIA, URINE AUTO 1+ (NEGATIVE); MUCUS, URINE SMALL (NEGATIVE); RBC, URINE AUTO 0 /HPF (0-3); SQUAMOUS EPITHELIAL CELL UR AU 5 /HPF (0-6); WBC, URINE AUTO 1 /HPF (0-3)
[2018-01-22 15:25] LABS: CHLAMYDIA DNA AMPLIFICATION NEGATIVE (NEGATIVE); GC DNA AMPLIFICATION NEGATIVE (NEGATIVE)
== END ==
LOC: M LAB REF 12:16
PROVIDERS: ATTEND Physician Assistant
DX: J06.9 Acute upper respiratory infection, unspecified (principal)

== ENCOUNTER 2019-11-28 23:55 | Emergency (ER) | payer OTHER ==
[~2019-11-28] VITALS: Ht 160 cm; Wt 80.5 kg
[~2019-11-28 23:55] MED LIST changes: -MECL-68 PO; +MECL1TAB31 PO; -MONT10TA2; +MONT10TA4
[2019-11-29] MEDS ORDERED: ONDANSETRON 4MG/2ML VIAL IV ONE (00:45)
[2019-11-29] MEDS ORDERED: NS 1,000 ML IV ONE (00:45)
[2019-11-29 01:06] LABS: BASO % 0.1 % (0.0-1.0); EOS # 0.1 10^3/uL (0.0-0.5); EOS % 1.1 % (0.0-3.0); HEMATOCRIT 37.3 % (36.0-47.0); HEMOGLOBIN 12.4 g/dl (12.0-15.5); LYMPH # 2.6 10^3/uL (1.5-5.0); LYMPH % 36.2 % (24.0-44.0); MEAN CORPUSCULAR HEMOGLOBIN 31.1 pg (27.0-33.0); MEAN CORPUSCULAR HGB CONC 33.2 g/dl (32.0-36.5); MEAN CORPUSCULAR VOLUME 93.5 fl (80.0-96.0); MONO # 0.5 10^3/uL (0.0-0.8); MONO % 6.7 % (0.0-5.0); NEUTROPHILS # 4.1 10^3/uL (1.5-8.5); NEUTROPHILS % 55.6 % (36.0-66.0); PLATELET COUNT, AUTOMATED 237 10^3/uL (150-450); RED BLOOD COUNT 3.99 10^6/uL (4.00-5.40); WHITE BLOOD COUNT 7.3 10^3/uL (4.0-10.0)
[2019-11-29] MEDS ORDERED: GI COCKTAIL 50ML BTL(HYOSCYAMINE/MAALOX/LIDOCAINE VISCOUS)(1:3:1) PO ONE (01:30)
[2019-11-29 01:49] LABS: CPK CREATINE PHOSPHOKINASE 183 U/L (26-192); FREE THYROXINE INDEX 2.3 % (1.3-4.8); MB/CK RELATIVE INDEX 0.55 (< OR =4); T UPTAKE 31 % (30-39); THYROID STIMULATING HORMONE 0.619 uIU/ML (0.358-3.740); THYROXINE (T4) 7.3 UG/DL (4.5-12.0); TROPONIN I < 0.02 NG/ML (< 0.10)
[2019-11-29] MEDS ORDERED: ONDA4TAB6 PO (01:58)
[2019-11-29] MEDS ORDERED: MECL1TAB31 PO (01:58)
[2019-11-29 02:00] VITALS: BP 140/81
[2019-11-29] MEDS ORDERED: OMEP40CA97 PO (02:03)
--- NOTE | 2019-11-29 16:08 | ECGEPIP ---
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
== END 2019-11-29 02:08 | disposition home or self-care (01) ==
LOC: M ED 23:55
DX: R11.0 Nausea (principal); R53.1 Weakness; Z79.899 Other long term (current) drug therapy
CPT/HCPCS: 80047; 81001; 82550; 82553; 84436; 84443; 84479; 84484; 84702; 85025; 93005; 96361; 96374; 99284; J2405

== ENCOUNTER 2021-03-02 20:24 | Emergency (ER) | payer OTHER ==
[~2021-03-02] VITALS: Ht 160 cm; Wt 79.1 kg
[~2021-03-02 20:24] MED LIST changes: -MONT10TA4; +MONT10TA97; +OMEP40CA4 PO; +ONDA4TAB6 PO
[2021-03-02 20:25] VITALS: BP 142/84
[2021-03-02] MEDS ORDERED: LORA-674 PO (20:34)
[2021-03-02] MEDS ORDERED: FAMO20TA PO (20:34)
[2021-03-02] MEDS ORDERED: SPIR-10 PO (20:34)
[2021-03-02] MEDS ORDERED: TRET0.02 TOP (20:34)
== END 2021-03-03 00:57 | disposition left against medical advice (07) ==
LOC: M ED 20:24
DX: Z53.21 Procedure and treatment not carried out due to patient leaving prior to being seen by health care provider (principal)

== ENCOUNTER 2021-07-30 02:46 | Emergency (ER) | payer OTHER ==
[~2021-07-30] VITALS: Ht 160 cm; Wt 74.5 kg
[2021-07-30 02:46] VITALS: BP 137/79
[~2021-07-30 02:46] MED LIST changes: +FAMO20TA PO; +LORA-674 PO; +SPIR-10 PO; +TRET0.02 TOP
== END 2021-07-30 03:22 | disposition left against medical advice (07) ==
LOC: M ED 02:46
DX: Z53.29 Procedure and treatment not carried out because of patient's decision for other reasons (principal)

== ENCOUNTER 2022-01-04 11:40 | Observation (INO) | payer OTHER ==
[~2022-01-04] VITALS: Ht 160 cm; Wt 87.5 kg
[2022-01-04] VITALS (20 sets, daily range): BP systolic 109–138; BP diastolic 56–77
[2022-01-04 12:20] LABS: HEMATOCRIT 34.5 % (36.0-47.0); HEMOGLOBIN 11.7 g/dl (12.0-15.5); MEAN CORPUSCULAR HEMOGLOBIN 32.3 pg (27.0-33.0); MEAN CORPUSCULAR HGB CONC 33.9 g/dl (32.0-36.5); MEAN CORPUSCULAR VOLUME 95.3 fl (80.0-96.0); PLATELET COUNT, AUTOMATED 204 10^3/uL (150-450); RED BLOOD COUNT 3.62 10^6/uL (4.00-5.40); WHITE BLOOD COUNT 8.5 10^3/uL (4.0-10.0)
[2022-01-04] MEDS ORDERED: HOME MED LIST COMPLETE! XX SCH (12:35)
[2022-01-04 12:51] LABS: GLUCOSE,RANDOM 104 MG/DL (LESS THAN 200)
[2022-01-04 13:04] LABS: APPEARANCE, URINE MANUAL HAZY (CLEAR); BILIRUBIN, URINE MANUAL NEGATIVE (NEGATIVE); BLOOD URINE MANUAL POSITIVE (NEGATIVE); COLOR, URINE MANUAL YELLOW (YELLOW); GLUCOSE, URINE (UA) MANUAL 1+(100 MG/DL) mg/dL (NEGATIVE); KETONE, URINE MANUAL 1+ mg/dL (NEGATIVE); LEUKOCYTE ESTERASE, URINE MAN NEGATIVE (NEGATIVE); NITRITE, URINE MANUAL NEGATIVE (NEGATIVE); PROTEIN, URINE MANUAL NEGATIVE (NEGATIVE); UROBILINOGEN, URINE MANUAL NORMAL (NORMAL)
[2022-01-04 13:22] LABS: BACTERIA, URINE MOD AMOUNT; RBC, URINE 15-20 /hpf (0-3); SQUAMOUS EPITHELIAL CELL URINE MOD AMOUNT /hpf (SMALL AMT)
[2022-01-04] MEDS ORDERED: LR 1,000 ML IV ONE (13:25)
[2022-01-04] MEDS ORDERED: MAG Sulf (L&D) 4 GM/100 ML 4 GM in IV 1 EA IV ONE (13:50)
[2022-01-04] MEDS: BETAMETHASONE SOLUSPAN 6MG/ML 5ML VIAL IM SCH (13:56)
[2022-01-04] MEDS: LR 1,000 ML IV SCH (13:56)
[2022-01-04] MEDS: MAG Sulf (OBGYN) 20GM/500ML 20,000 MG in IV 1 EA IV SCH (14:57)
[2022-01-04] MEDS ORDERED: RHOGAM 300MCG (1500IU) INJ IM SCH (17:50)
[2022-01-04] MEDS ORDERED: DEXTROSE 50% 50ML SYRINGE IV PRN (17:50)
[2022-01-04] MEDS ORDERED: GLUCAGON INJ 1MG VIAL SC PRN (17:50)
[2022-01-04] MEDS ORDERED: GLUCOSE 4GM CHEW TABLET PO PRN (17:50)
[2022-01-04] MEDS: INSULIN LISPRO (NovoLOG) PER UNIT SC SCH (20:49)
[2022-01-04] MEDS ORDERED: PROMETHAZINE 25MG/ML 1ML VIAL IV ONE (23:00)
[2022-01-05] VITALS (13 sets, daily range): BP systolic 104–132; BP diastolic 55–72
[2022-01-05] MEDS: MAG Sulf (OBGYN) 20GM/500ML 20,000 MG in IV 1 EA IV SCH (01:04)
[2022-01-05] MEDS: LR 1,000 ML IV SCH (01:05)
[2022-01-05] MEDS ORDERED: CALCIUM CARBONATE 500 MG CHEW U/D PO ONE (07:00)
[2022-01-05] MEDS: INSULIN LISPRO (NovoLOG) PER UNIT SC SCH ×2 (08:35→13:38)
[2022-01-05] MEDS ORDERED: SIMETHICONE 80MG CHEW TAB PO PRN (11:35)
[2022-01-05] MEDS: BETAMETHASONE SOLUSPAN 6MG/ML 5ML VIAL IM SCH (14:00)
[2022-01-06] MEDS ORDERED: NOVOINJ13 SC (11:04)
[2022-01-06] MEDS ORDERED: NOVOINJ12 SC (11:04)
[2022-01-06] MEDS ORDERED: OMEP40CA4 PO (11:04)
[2022-01-06] MEDS ORDERED: PREN27TA3 PO (11:04)
== END 2022-01-05 15:15 | disposition home or self-care (01) ==
LOC: M LDO 11:40 → M LDI 11:41
PROVIDERS: ADMIT Obstetrics & Gynecology; ATTEND Obstetrics & Gynecology
DX: O26.873 Cervical shortening, third trimester (principal); O60.03 Preterm labor without delivery, third trimester; O24.414 Gestational diabetes mellitus in pregnancy, insulin controlled; O36.0930 Maternal care for other rhesus isoimmunization, third trimester, not applicable or unspecified; O44.43 Low lying placenta NOS or without hemorrhage, third trimester; Z3A.31 31 weeks gestation of pregnancy

== ENCOUNTER 2022-01-06 10:35 | Outpatient (CLI) | payer OTHER ==
[~2022-01-06] VITALS: Ht 160 cm; Wt 88.2 kg
[~2022-01-06 10:35] MED LIST changes: -NOVOINJ12 SC; -NOVOINJ13 SC; -PREN27TA3 PO
[2022-01-06 10:58] VITALS: BP 139/61
[2022-01-06] MEDS ORDERED: PREN27TA3 PO (11:04)
[2022-01-06] MEDS ORDERED: OMEP40CA4 PO (11:04)
[2022-01-06] MEDS ORDERED: NOVOINJ12 SC (11:04)
[2022-01-06] MEDS ORDERED: NOVOINJ13 SC (11:04)
[2022-01-06] MEDS ORDERED: MAG Sulf (L&D) 4 GM/100 ML 4 GM in IV 1 EA IV ONE (11:15)
[2022-01-06] MEDS ORDERED: MAG Sulf (OBGYN) 20GM/500ML 20,000 MG in IV 1 EA IV SCH (11:35)
[2022-01-06 12:08] VITALS: BP 104/57
[2022-01-06 12:35] VITALS: BP 107/57
[2022-01-06 13:06] LABS: AMPHETAMINES URINE REFLEX NEGATIVE (NEGATIVE); BARBITURATES URINE REFLEX NEGATIVE (NEGATIVE); BENZODIAZEPINES URINE REFLEX NEGATIVE (NEGATIVE); CANNABINOIDS URINE REFLEX NEGATIVE (NEGATIVE); COCAINE METABOLITE URINE REFLE NEGATIVE (NEGATIVE); OPIATES URINE REFLEX NEGATIVE (NEGATIVE)
[2022-01-06 13:07] LABS: PHENCYCLIDINE URINE REFLEX NEGATIVE (NEGATIVE)
[2022-01-06 13:23] VITALS: BP 131/66
[2022-01-06 13:24] LABS: METHADONE URINE REFLEX NEGATIVE (NEGATIVE)
[2022-01-06 14:12] VITALS: BP 143/71
== END 2022-01-06 14:30 ==
LOC: M LDO 10:35
PROVIDERS: ATTEND Obstetrics & Gynecology
DX: O60.03 Preterm labor without delivery, third trimester (principal); Z3A.31 31 weeks gestation of pregnancy; O09.523 Supervision of elderly multigravida, third trimester; O24.414 Gestational diabetes mellitus in pregnancy, insulin controlled
CPT/HCPCS: 59025; 80307; 87635; G0378; G0463; J3475

== ENCOUNTER → 2022-01-06 | Outpatient (CLI) | payer OTHER ==
[~2022-01-06] MED LIST changes: +NOVOINJ12 SC; +NOVOINJ13 SC; +PREN27TA3 PO
== END ==
LOC: M RAD 09:35
PROVIDERS: ATTEND Obstetrics & Gynecology
DX: O44.43 Low lying placenta NOS or without hemorrhage, third trimester (principal); O24.419 Gestational diabetes mellitus in pregnancy, unspecified control; Z3A.31 31 weeks gestation of pregnancy

== ENCOUNTER 2022-01-11 03:36 | Inpatient (IN) | payer OTHER ==
[~2022-01-11] VITALS: Ht 160 cm; Wt 88.4 kg
[~2022-01-11 03:36] MED LIST changes: +NOVOINJ12 SC; +NOVOINJ13 SC; +PREN27TA3 PO
[2022-01-11 03:49] VITALS: BP 121/67
[2022-01-11] MEDS ORDERED: METHYLERGONOVINE MALEATE 0.2 MG/ML VIAL (J2210) IM PRN (04:40)
[2022-01-11] MEDS: LR 1,000 ML IV SCH ×2 (04:40→05:20)
[2022-01-11] MEDS ORDERED: TRANEXAMIC ACID INJection 1,000 MG in NS 100 ML IV PRN (04:40)
[2022-01-11] MEDS ORDERED: OXYTOCIN INJ 10UNITS/ML 1ML VIAL IM PRN (04:40)
[2022-01-11] MEDS ORDERED: CARBOPROST TROMETHAMINE 250 MCG/ML AMP IM PRN (04:40)
[2022-01-11] MEDS ORDERED: LIDOCAINE 1% MDV 20ML VIAL INFIL PRN (04:40)
[2022-01-11] MEDS ORDERED: OXYTOCIN DRIP 30 UNITS in IV 1 EA IV PRN ×6 (04:40)
[2022-01-11] MEDS ORDERED: AZITHROMYCIN 250MG TABLET PO ONE (04:50)
[2022-01-11] MEDS ORDERED: ceFAZolin SOD 2 GM in IV 1 EA IV SCH (05:00)
[2022-01-11] MEDS ORDERED: ONDANSETRON 4MG 2ML VIAL IV PRN (05:30)
[2022-01-11] MEDS ORDERED: GLUCAGON INJ 1MG VIAL SC PRN (05:50)
[2022-01-11] MEDS ORDERED: GLUCOSE 4GM CHEW TABLET PO PRN (05:50)
[2022-01-11] MEDS ORDERED: DEXTROSE 50% 50 ML SYRINGE IV PRN (05:50)
[2022-01-11 05:52] LABS: BASO % 0.1 % (0.0-1.0); EOS % 0.3 % (0.0-3.0); HEMATOCRIT 33.7 % (36.0-47.0); HEMOGLOBIN 10.9 g/dl (12.0-15.5); LYMPH # 1.8 10^3/uL (1.5-5.0); LYMPH % 13.6 % (24.0-44.0); MEAN CORPUSCULAR HEMOGLOBIN 31.8 pg (27.0-33.0); MEAN CORPUSCULAR HGB CONC 32.3 g/dl (32.0-36.5); MEAN CORPUSCULAR VOLUME 98.3 fl (80.0-96.0); MONO # 0.6 10^3/uL (0.0-0.8); MONO % 4.9 % (2.0-8.0); NEUTROPHILS # 10.5 10^3/uL (1.5-8.5); NEUTROPHILS % 80.6 % (36.0-66.0); PLATELET COUNT, AUTOMATED 215 10^3/uL (150-450); RED BLOOD COUNT 3.43 10^6/uL (4.00-5.40); WHITE BLOOD COUNT 13.1 10^3/uL (4.0-10.0)
[2022-01-11] MEDS: HumuLIN N INSULIN (NovoLIN N) PER UNIT SC SCH ×2 (06:00→20:16)
[2022-01-11] MEDS: INSULIN LISPRO (NovoLOG) PER UNIT SC SCH ×4 (07:30→20:16)
[2022-01-11 10:03] VITALS: BP 106/59
[2022-01-11] MEDS: AMPICILLIN SOD 2 GM in D5W MINI-BAG PLUS 100 ML IV SCH ×2 (11:42→18:41)
[2022-01-11 15:04] VITALS: BP 116/56
[2022-01-11] MEDS ORDERED: HOME MED LIST COMPLETE! XX SCH (16:40)
[2022-01-11 18:46] VITALS: BP 137/62
[2022-01-12] VITALS (52 sets, daily range): BP systolic 90–143; BP diastolic 49–80
[2022-01-12] MEDS: AMPICILLIN SOD 2 GM in D5W MINI-BAG PLUS 100 ML IV SCH ×3 (00:08→12:06)
[2022-01-12] MEDS ORDERED: PROMETHAZINE 25MG/ML 1ML VIAL IV ONE (06:10)
[2022-01-12] MEDS ORDERED: BUTORPHANOL 2 MG/ML 1ML VIAL IV ONE (06:10)
[2022-01-12] MEDS: INSULIN LISPRO (NovoLOG) PER UNIT SC SCH (06:11)
[2022-01-12] MEDS: HumuLIN N INSULIN (NovoLIN N) PER UNIT SC SCH (06:11)
[2022-01-12] MEDS ORDERED: NS 1,000 ML IV ONE (08:25)
[2022-01-12] MEDS ORDERED: NS 1,000 ML IV SCH (08:30)
[2022-01-12] MEDS ORDERED: diphenhydrAMINE 50MG/ML VIAL IV PRN (09:00)
[2022-01-12] MEDS ORDERED: LR 500 ML IV PRN (09:00)
[2022-01-12] MEDS ORDERED: FENTANYL/ROPIVACAINE/NACL BAG 100 ML EPIDURAL SCH (09:00)
[2022-01-12] MEDS ORDERED: EPIDURAL/PCA KEYS XX PRN (09:00)
[2022-01-12] MEDS ORDERED: ONDANSETRON 4MG 2ML VIAL IV PRN (09:00)
[2022-01-12] MEDS ORDERED: NALOXONE INJ 0.4MG/1ML VIAL IV PRN (09:00)
[2022-01-12] MEDS: ePHEDrine SULFATE 25 MG/5 ML(5MG/ML) SYRINGE IVP PRN ×3 (11:21→11:34)
[2022-01-12] MEDS ORDERED: D5W/0.45% SODIUM CHLORIDE 1,000 ML IV PRN (12:00)
[2022-01-12] MEDS ORDERED: DIBUCAINE 1% OINTMENT 30GM TOP PRN (16:25)
[2022-01-12] MEDS ORDERED: METHYLERGONOVINE MALEATE 0.2 MG TAB PO PRN (16:25)
[2022-01-12] MEDS ORDERED: ANUSOL HC CREAM 30GM TOP PRN (16:25)
[2022-01-12] MEDS ORDERED: OXYTOCIN DRIP 30 UNITS in IV 1 EA IV SCH (16:25)
[2022-01-12] MEDS ORDERED: DOCUSATE SODIUM 100MG CAPSULE PO PRN (16:25)
[2022-01-12] MEDS ORDERED: ACETAMINOPHEN TAB 650MG DOSE (2X325MG) PO PRN (16:25)
[2022-01-12] MEDS ORDERED: IBUPROFEN 600MG TAB PO PRN (16:25)
[2022-01-12] MEDS ORDERED: RHOGAM 300 MCG (1500 IU) INJ (J2790) IM SCH (16:25)
[2022-01-12 16:49] LABS: CORD GAS ABE V -2.7; CORD GAS HCO3 V 24.4 MEQ/L; CORD GAS O2 SAT V 58.1 %; CORD GAS PCO2 V 50.3 mmHg; CORD GAS PH V 7.303 UNITS; CORD GAS PO2 V 23.2 mmHg; CORD GAS SBC V 21.2 MEQ/L; CORD GAS TCO2 V 25.9 MEQ/L
[2022-01-12 16:50] LABS: CORD GAS HCO3 A 27.1 MEQ/L; CORD GAS O2 SAT A 34.5 %; CORD GAS PCO2 A 64.3 mmHg; CORD GAS PH A 7.243 UNITS; CORD GAS PO2 A 17.3 mmHg; CORD GAS SBC A 21.2 MEQ/L; CORD GAS TCO2 A 29.1 MEQ/L
[2022-01-12] MEDS: ACETAMINOPHEN 500 MG TAB PO PRN (18:11)
[2022-01-12] MEDS: IBUPROFEN 800 MG TAB PO PRN (20:52)
[2022-01-12] MEDS ORDERED: LABETALOL 100MG/20ML VIAL IV STA (21:10)
[2022-01-13] MEDS: IBUPROFEN 800 MG TAB PO PRN ×3 (05:34→21:07)
[2022-01-13 06:00] VITALS: BP 101/51
[2022-01-13 06:42] LABS: HEMOGLOBIN 10.4 g/dl (12.0-15.5); MEAN CORPUSCULAR HEMOGLOBIN 32.7 pg (27.0-33.0); MEAN CORPUSCULAR HGB CONC 33.5 g/dl (32.0-36.5); MEAN CORPUSCULAR VOLUME 97.5 fl (80.0-96.0); PLATELET COUNT, AUTOMATED 190 10^3/uL (150-450); RED BLOOD COUNT 3.18 10^6/uL (4.00-5.40); WHITE BLOOD COUNT 11.9 10^3/uL (4.0-10.0)
[2022-01-13] MEDS: PRENATAL VITAMINS CHEWABLE TABLET PO SCH (08:12)
[2022-01-13] MEDS: ACETAMINOPHEN 500 MG TAB PO PRN ×3 (08:12→23:29)
[2022-01-13] MEDS ORDERED: INFLUENZA QUADRIVALENT PF VACCINE 0.5ML SYRINGE IM.IMMUN ONE (16:00)
[2022-01-13] MEDS ORDERED: BOOSTRIX/ADACEL VACCINE (DIPHTH/PERTUSS/ACELL/TETANUS) 0.5ML SYR IM.IMMUN ONE (16:00)
[2022-01-13 17:59] VITALS: BP 134/68
[2022-01-14] MEDS: ACETAMINOPHEN 500 MG TAB PO PRN (05:39)
[2022-01-14 06:00] VITALS: BP 94/55
[2022-01-14] MEDS ORDERED: INFLUENZA QUADRIVALENT PF VACCINE 0.5ML SYRINGE IM.IMMUN ONE (09:00)
[2022-01-14] MEDS ORDERED: BOOSTRIX/ADACEL VACCINE (DIPHTH/PERTUSS/ACELL/TETANUS) 0.5ML SYR IM.IMMUN ONE (09:00)
[2022-01-14] MEDS ORDERED: MEASLES,MUMPS,RUBELLA VACCINE INJ (MMR-II) (90707) SC.IMMUN ONE (09:00)
[2022-01-14] MEDS ORDERED: ACET1TAB55 PO (09:24)
[2022-01-14] MEDS ORDERED: IBUP-1022 PO (09:24)
[2022-01-14] MEDS ORDERED: COLA100C5 PO (09:24)
[2022-01-14] MEDS: PRENATAL VITAMINS CHEWABLE TABLET PO SCH (10:05)
[2022-01-14] MEDS: IBUPROFEN 800 MG TAB PO PRN (11:12)
== END 2022-01-14 11:35 | disposition home or self-care (01) | DRG 807 ==
LOC: M LDO 03:36 → M LDI 04:38 → M OBS 01-12 18:27
PROVIDERS: ADMIT Obstetrics & Gynecology; ATTEND Advanced Practice Midwife
PROC: 10E0XZZ Delivery of Products of Conception, External Approach (ICD-10-PCS; principal; 2022-01-12)
DX: O42.013 Preterm premature rupture of membranes, onset of labor within 24 hours of rupture, third trimester (principal); Z37.0 Single live birth; Z3A.32 32 weeks gestation of pregnancy; O24.424 Gestational diabetes mellitus in childbirth, insulin controlled; Z79.4 Long term (current) use of insulin; O99.344 Other mental disorders complicating childbirth; F32.A Depression, unspecified; Z79.899 Other long term (current) drug therapy; O69.1XX0 Labor and delivery complicated by cord around neck, with compression, not applicable or unspecified

== ENCOUNTER 2022-04-29 22:11 | Emergency (ER) | payer OTHER ==
[~2022-04-29] VITALS: Ht 160 cm; Wt 81.3 kg
[~2022-04-29 22:11] MED LIST changes: +ACET1TAB55 PO; +COLA100C5 PO; +IBUP-1022 PO
[2022-04-29] MEDS ORDERED: ANUSOL HC 25MG SUPP PR ONE (22:55)
[2022-04-29] MEDS ORDERED: ANUS25SU PR (22:55)
[2022-04-29 23:09] VITALS: BP 125/71
== END 2022-04-29 23:49 | disposition home or self-care (01) ==
LOC: M ED 22:11
DX: K64.8 Other hemorrhoids (principal); K21.9 Gastro-esophageal reflux disease without esophagitis; F32.A Depression, unspecified; Z79.899 Other long term (current) drug therapy